=== PATIENT | female | born 1950 | race Caucasian/White ===

== ENCOUNTER 2017-05-24 01:20 | Emergency (ER) | payer MEDICARE, OTHER ==
[~2017-05-24] VITALS: Ht 154.9 cm; Wt 75.0 kg
[~2017-05-24 01:20] MED LIST: DICL-86 PO; DILA100C PO; GARL500T PO; IBUP400T20 PO; MULTTAB63 PO; PERCOCET PO; PHEN30TA32 PO; PHEN60TA PO; SULF1TAB47 PO; VITA100T15 PO; VITA400C70 PO; VITACRY3 PO
[2017-05-24 01:25] VITALS: BP 190/77; PULSE 72; RESP 16; TEMP 98.4; O2SAT 98
[2017-05-24 01:43] VITALS: BP 151/67; PULSE 68; RESP 18; O2SAT 98
[2017-05-24 02:00] VITALS: O2SAT 99
[2017-05-24] MEDS ORDERED: SODIUM CHLORIDE 0.9% FLUSH 10 ML FLUSH IVF PRN (02:00)
[2017-05-24 02:12] LABS: AUTOMATED NEUTROPHIL # 2.5 TH/MM3 (1.8-7.7); BASOPHIL % 0.3 % (0.0-2.0); EOSINOPHIL # 0.1 TH/MM3 (0-0.4); HEMATOCRIT 40.4 % (35.0-46.0); HEMO FLAGS DIFF FINAL; LYMPH % 42.4 % (9.0-44.0); LYMPHOCYTE # 2.3 TH/MM3 (1.0-4.8); MEAN CORPUSCULAR HEMOGLOBIN 33.1 PG (27.0-34.0); MEAN CORPUSCULAR HGB CONC 35.2 % (32.0-36.0); MONO % 10.4 % (0.0-8.0); NEUT % 45.9 % (16.0-70.0); PLATELET COUNT 111 TH/MM3 (150-450); RED BLOOD COUNT 4.29 MIL/MM3 (4.00-5.30); RED CELL DISTRIBUTION WIDTH 12.2 % (11.6-17.2); WHITE BLOOD COUNT 5.4 TH/MM3 (4.0-11.0)
--- NOTE | 2017-05-24 02:19 | PD ---
HPI Chief Complaint: Cardiac Complaint Time Seen by Provider: 01:34 Travel History International Travel<30 days: No Contact w/Intl Traveler<30days: No Traveled to known affect area: No History of Present Illness HPI the patient 67 years old and describes palpitations. she notes that her gonorrhea canalith type procedure several weeks prior and since then she's had labile blood pressure. It is highest early in the mornings at 160 or so. Typically later in the morning it decreases to the 140s systolic. She reports palpitations. She's had no chest pain per se numbness tingling weakness or pain /discomfort in the neck or either upper extremity or the back. She has a family history of hypertension however no personal history of hypertension. Palpitations feels as if her heart is racing. She denies lightheadedness dizziness and loss of consciousness. PFSH Past Medical History Arthritis: Yes Diabetes: Yes Musculoskeletal: Yes (RIGHT SHOULDER PAIN) Immunizations Current: Yes Seizures: Yes Ulcer: Yes Tetanus Vaccination: Unknown Influenza Vaccination: No Menopausal: Yes Past Surgical History Tonsillectomy: Yes Social History Alcohol Use: No Tobacco Use: No Substance Use: No Allergies-Medications (Allergen,Severity, Reaction): Coded Allergies: No Known Allergies (Verified Adverse Reaction, Unknown, 05/24/17) Reported Meds & Prescriptions Reported Meds & Active Scripts Active Reported [place] (Hydrocodone-Acetaminophen) 5 Mg-325 Mg Tab 1 Tab PO Q6H PRN Phenobarbital 30 Mg Tab 30 Mg PO BID Dilantin (Phenytoin Extended) 100 Mg Cap 100 Mg PO TID Review of Systems Except as stated in HPI: all other systems reviewed are Neg General / Constitutional: No: Fever Cardiovascular: Positive: Palpitations, No: Chest Pain or Discomfort Physical Exam Narrative GENERAL: 67-year-old female pleasant well-nourished well-developed mild distress SKIN: Focused skin assessment warm/dry. HEAD: Atraumatic. Normocephalic. EYES: Pupils equal and round. No scleral icterus. No injection or drainage. ENT: No nasal bleeding or discharge. Mucous membranes pink and moist. NECK: Trachea midline. No JVD. CARDIOVASCULAR: Regular rate and rhythm. No murmur appreciated. RESPIRATORY: No accessory muscle use. Clear to auscultation. Breath sounds equal bilaterally. GASTROINTESTINAL: Abdomen soft, non-tender, nondistended. Hepatic and splenic margins not palpable. MUSCULOSKELETAL: No obvious deformities. No clubbing. No cyanosis. No edema. NEUROLOGICAL: Awake and alert. No obvious cranial nerve deficits. Motor grossly within normal limits. Normal speech. PSYCHIATRIC: Appropriate mood and affect; insight and judgment normal. Data Data Last Documented VS Vital Signs Date Time Temp Pulse Resp B/P (MAP) Pulse Ox O2 Delivery O2 Flow Rate FiO2 05/24/17 02:00 99 Room Air 05/24/17 02:00 05/24/17 01:43 68 18 05/24/17 01:25 98.4 Orders Orders Electrocardiogram (05/24/17 01:49) Basic Metabolic Panel (Bmp) (05/24/17 01:49) B-Type Natriuretic Peptide (05/24/17 01:49) Ckmb (Isoenzyme) Profile (05/24/17 01:49) Complete Blood Count With Diff (05/24/17 01:49) D-Dimer (05/24/17 01:49) Magnesium (Mg) (05/24/17 01:49) Prothrombin Time / Inr (Pt) (05/24/17 01:49) Act Partial Throm Time (Ptt) (05/24/17 01:49) Troponin I (05/24/17 01:49) Chest, Single Ap (05/24/17 01:49) Ecg Monitoring (05/24/17 01:49) Iv Access Insert/Monitor (05/24/17 01:49) Oximetry (05/24/17 01:49) Oxygen Administration (05/24/17 01:49) Sodium Chloride 0.9% Flush (Ns Flush) (05/24/17 02:00) Acetaminophen (Tylenol) (05/24/17 02:30) Sodium Chlor 0.9% 1000 Ml Inj (Ns 1000 M (05/24/17 03:00) Labs Laboratory Tests Test 05/24/17 02:00 White Blood Count 5.4 TH/MM3 Red Blood Count 4.29 MIL/MM3 Hemoglobin 14.2 GM/DL Hematocrit 40.4 % Mean Corpuscular Volume 94.0 FL Mean Corpuscular Hemoglobin 33.1 PG Mean Corpuscular Hemoglobin Concent 35.2 % Red Cell Distribution Width 12.2 % Platelet Count 111 TH/MM3 Mean Platelet Volume 9.2 FL Neutrophils (%) (Auto) 45.9 % Lymphocytes (%) (Auto) 42.4 % Monocytes (%) (Auto) 10.4 % Eosinophils (%) (Auto) 1.0 % Basophils (%) (Auto) 0.3 % Neutrophils # (Auto) 2.5 TH/MM3 Lymphocytes # (Auto) 2.3 TH/MM3 Monocytes # (Auto) 0.6 TH/MM3 Eosinophils # (Auto) 0.1 TH/MM3 Basophils # (Auto) 0.0 TH/MM3 CBC Comment DIFF FINAL Differential Comment Prothrombin Time 11.0 SEC Prothromb Time International Ratio 1.0 RATIO Activated Partial Thromboplast Time 29.0 SEC D-Dimer Quantitative (PE/DVT) 0.21 MG/L FEU Blood Urea Nitrogen 20 MG/DL Creatinine 0.78 MG/DL Random Glucose 94 MG/DL Calcium Level 8.4 MG/DL Magnesium Level 2.2 MG/DL Sodium Level 140 MEQ/L Potassium Level 3.9 MEQ/L Chloride Level 104 MEQ/L Carbon Dioxide Level 27.3 MEQ/L Anion Gap 9 MEQ/L Estimat Glomerular Filtration Rate 73 ML/MIN Total Creatine Kinase 69 U/L Troponin I LESS THAN 0.02 NG/ML MDM Medical Decision Making Medical Screen Exam Complete: Yes Emergency Medical Condition: Yes Medical Record Reviewed: Yes Differential Diagnosis Arrhythmia, anemia, coronary disease, metabolic disarray Narrative Course EKG: sinus, rate 65, normal axis/intervals, no ischemic injury pattern CBC & BMP Diagram 05/24/17 02:00 Calcium Level 8.4 L, Magnesium Level 2.2 The patient is resting comfortably and feels better, is alert and in no distress. The patients results and examination findings were discussed. The repeat examination is unremarkable and benign. The history, exam, diagnostic testing, and current condition do not suggest any significant pathology to warrant further testing, continued ED treatment, admission, or surgical evaluation at this point. The vital signs have been stable. The patient does not have uncontrollable pain, intractable vomiting, or other significant symptoms. The patient's condition is stable and appropriate for discharge. The patient will pursue further outpatient evaluation with a primary care physician or other designated or consulting physician as indicated in the discharge instructions. The patient expressed understanding and was agreeable with this plan. Diagnosis Primary Impression: Palpitations Additional Impressions: Hypertension Qualified Codes: I10 - Essential (primary) hypertension Dehydration Additional Instructions: PLEASE FOLLOW UP WITH PRIMARY CARE DOCTOR WE DISCUSSED. DIET AND LIFESTYLE MODIFICATION ARE THE FIRST STEPS FOR BLOOD PRESSURE MANAGEMENT. Med/Other Pt SpecificInfo: No Change to Meds Disposition: 01 DISCHARGE HOME Condition: Stable Gus Mueller MD May 24, 2017 02:19
[2017-05-24 02:27] LABS: ANION GAP 9 MEQ/L (5-15); BICARBONATE 27.3 MEQ/L (21.0-32.0); BLOOD UREA NITROGEN 20 MG/DL (7-18); CHLORIDE 104 MEQ/L (98-107); GLOMERULAR FILTRATION RATE 73 ML/MIN (>89); MAGNESIUM 2.2 MG/DL (1.5-2.5); POTASSIUM 3.9 MEQ/L (3.5-5.1); SODIUM (NA) 140 MEQ/L (136-145)
[2017-05-24] MEDS ORDERED: DILA100C PO (02:27)
[2017-05-24] MEDS ORDERED: PHEN-523 PO (02:27)
[2017-05-24] MEDS ORDERED: NORC5TAB PO (02:28)
[2017-05-24] MEDS ORDERED: ACETAMINOPHEN 500 MG CPLT PO ONE (02:30)
[2017-05-24 02:34] LABS: CREATINE KINASE 69 U/L (26-192)
--- NOTE | 2017-05-24 02:37 | RADRPT ---
EXAM DATE/TIME: 05/24/2017 01:54 [facility] COMPARISON: No previous studies available for comparison. INDICATIONS : Shortness of breath, pain at medial chest. MEDICAL HISTORY : None. SURGICAL HISTORY : None. ENCOUNTER: Initial ACUITY: 1 day PAIN SCORE: 3/10 LOCATION: Bilateral chest FINDINGS: Trace left base atelectasis. Lungs are otherwise clear. No pleural effusion seen. No pneumothorax. Normal heart size. CONCLUSION: Minimal left base atelectasis. Luis Trejo MD on May 24, 2017 at 2:35 Board Certified Radiologist. This report was verified electronically.
[2017-05-24] MEDS ORDERED: SODIUM CHLOR 0.9% 1000 ML INJ 1,000 ML IV ONE (03:00)
--- NOTE | 2017-05-24 15:32 | EKG ---
Date Performed: 05/24/2017 Time Performed: 01:50:56 PTAGE: 67 years EKG: Sinus rhythm Compared to prior tracing no significant change NORMAL ECG PREVIOUS TRACING : 06/15/08 @ 0241 DOCTOR: Ritesh Martin Interpretating Date/Time 05/24/2017 15:30:52
== END 2017-05-24 03:57 | disposition home or self-care (01) ==
LOC: NEPC 01:20
DX: R00.2 Palpitations (principal); I10 Essential (primary) hypertension; E86.0 Dehydration; J98.11 Atelectasis; M19.90 Unspecified osteoarthritis, unspecified site; E11.9 Type 2 diabetes mellitus without complications; R56.9 Unspecified convulsions; Z79.899 Other long term (current) drug therapy
CPT/HCPCS: 71010; 80048; 82550; 83735; 83880; 84484; 85025; 85379; 85610; 85730; 93005; 96360; 99285; J7030